=== PATIENT | female | born 1950 | race Caucasian/White ===

== ENCOUNTER 2019-07-31 11:11 | Emergency (ER) | payer MEDICARE, OTHER ==
--- NOTE | 2019-07-31 12:24 | ED Physician Documentation ---
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: Mastectomy - Allergies Allergies/Adverse Reactions: Allergies Allergy/AdvReac Type Severity Reaction Status Date / Time iodine Allergy Anaphylaxis Verified 07/31/19 11:18 shellfish derived Allergy Anaphylaxis Verified 07/31/19 11:18 Contrast dye Allergy Anaphylaxis Uncoded 07/31/19 11:18 - Social History Does the pt smoke?: No Smoking Status: Never smoker Does the pt drink ETOH?: No Does the pt have substance abuse?: No - Immunizations Immunizations are current?: Yes Departure - Departure Disposition: 01 Home, Self Care Clinical Impression: Scalp laceration Qualifiers: Encounter type: initial encounter Qualified Code(s): S01.01XA - Laceration without foreign body of scalp, initial encounter Condition: Good Instructions: ED Laceration Scalp Stitch Or Stap Comments: Followup with your physician in 7-10 days for staple removal. <Franklin Armstrong - Last Filed: 07/31/19 12:59> PD HPI HEAD INJURY - History obtained from History obtained from: Patient (This is a very healthy 68-year-old woman who is not intake regulated. She was doing some housework and she stood up into the edge of a cupboard and has a laceration on the right side of the scalp. No significant headache. Tetanus is up-to-date. No loss of consciousness. No other injuries.) Review of Systems Constitutional: reports: Reviewed and negative Cardiac: reports: Reviewed and negative Respiratory: reports: Reviewed and negative PD ED PE NORMAL - Vitals Vital signs reviewed: Yes - General General: Alert and oriented X 3, No acute distress - HEENT HEENT: PERRL, EOMI, Other (There is a 2 cm somewhat jagged laceration on the right superior scalp kind of near the vertex. No bony tenderness.) - Neck Neck: Supple, no meningeal sign, No bony TTP - Neuro Neuro: Alert and oriented X 3, Normal speech - Psych Psych: Normal mood, Normal affect Results - Vitals Vitals: Vital Signs - 24 hr 07/31/19 11:14 Temperature 36.3 C L Heart Rate 63 Respiratory 16 Rate Blood Pressure 149/71 H O2 Saturation 98 Oxygen O2 Source Room air Procedures - Laceration (location) Scalp Length in cm: 1.5 Wound type: Linear Anesthesia: LET Wound Preparation: Irrigated copiously NS Skin layer closure: Deacon (2) Other: Tetanus UTD Complexity: Simple PD MEDICAL DECISION MAKING - ED course ED course: 68-year-old woman with scalp laceration, given the mechanism, and its been 3 hours without significant headache or loss of consciousness I do not see the need for imaging at this juncture. Departure - Departure Record reviewed to determine appropriate education?: Yes
[2019-07-31] MEDS ORDERED: ASPIRIN 325 MG TABLET PO STA (12:33)
[2019-07-31] MEDS ORDERED: LIDOCAINE-EPINEPH-TETRACAINE 3 ML SYRINGE TOP STA (12:33)
[2019-07-31 13:06] VITALS: BP 138/79
== END 2019-07-31 13:10 | disposition home or self-care (01) ==
LOC: ED 11:11
DX: S01.01XA Laceration without foreign body of scalp, initial encounter (principal); W22.09XA Striking against other stationary object, initial encounter; Y93.E9 Activity, other interior property and clothing maintenance
CPT/HCPCS: 12001; 99282; A9270